=== PATIENT | male | born 1965 | race African-American/Black ===

== ENCOUNTER 2017-01-07 14:51 | Emergency (ER) | payer OTHER ==
[2017-01-07 15:01] VITALS: BP 151/99
--- NOTE | 2017-01-07 15:22 | ER Document Report ---
ED Medical Screen (RME) - General Stated Complaint: BLOOD PRESSURE PROBLEMS Notes: 51 yo male c/o elevated BP, shortness of breath, chest tightness since this morning while at work. seen at urgent care earlier today. EKG was normal. pt went home to rest, but symptoms persisted. + Hx/o HTN, no DM, nonsmoker. no previous cardiac hx. + fam cardiac hx. similar symptoms last year, dx with panic attack. pt feeling "normal" presently, pt tachy 127 TRAVEL OUTSIDE OF THE [place] IN LAST 30 DAYS: No - Related Data Allergies/Adverse Reactions: aspirin [Aspirin] Allergy (Severe, Verified 07/11/14 12:39) Anaphylaxis ibuprofen [From Motrin] Allergy (Severe, Verified 07/11/14 12:39) Anaphylaxis acetaminophen [From Vicodin] Allergy (Intermediate, Verified 07/11/14 12:39) Urticaria hydrocodone bitartrate [From Vicodin] Allergy (Intermediate, Verified 07/11/14 12:39) Urticaria oxycodone [Oxycodone] Allergy (Intermediate, Verified 07/11/14 12:39) Urticaria propoxyphene napsylate [From Darvocet-N 100] Allergy (Intermediate, Verified 12:39) Urticaria meloxicam [From Mobic] Allergy (Verified 07/11/14 12:39) oxycodone HCl [From Percocet] Allergy (Verified 07/11/14 12:39) tramadol [Tramadol] Allergy (Verified 07/11/14 12:39) Past Medical History - Past Medical History Cardiac Medical History: Reports: Hx Hypertension Pulmonary Medical History: Reports: Hx Tuberculosis - 1993 treated Psychiatric Medical History: Reports: Hx Anxiety Past Surgical History: Reports: Hx Abdominal Surgery - hernia repair, gastric bypass, Hx Testicular Surgery, Hx Tonsillectomy - Immunizations Hx Diphtheria, Pertussis, Tetanus Vaccination: No Physical Exam - Vital signs Vitals: Temp Pulse Resp BP Pulse Ox 98.8 F 127 H 16 151/99 H 99 01/07/17 14:59 01/07/17 14:59 01/07/17 14:59 01/07/17 14:59 01/07/17 14:59 Course - Vital Signs Vital signs: Temp Pulse Resp BP Pulse Ox 98.8 F 127 H 16 151/99 H 99 01/07/17 14:59 01/07/17 14:59 01/07/17 14:59 01/07/17 14:59 01/07/17 14:59
[2017-01-07 16:18] LABS: ABSOLUTE LYMPHOCYTES (AUTO) 1.9 10^3/uL (0.5-4.7); ABSOLUTE MONOCYTES (AUTO) 0.5 10^3/uL (0.1-1.4); BASOPHILS % (AUTO) 0.4 % (0-2); EOSINOPHILS % (AUTO) 0.5 % (0-6); HEMATOCRIT 40.8 % (37.9-51.0); HEMOGLOBIN 13.3 g/dL (13.5-17.0); HGB HCT DIFFERENCE -0.9; LYMPHOCYTES % (AUTO) 35.4 % (13-45); MEAN CORPUSCULAR HEMOGLOBIN 28.4 pg (27.0-33.4); MEAN CORPUSCULAR HGB CONC 32.6 g/dL (32.0-36.0); MEAN CORPUSCULAR VOLUME 87 fl (80-97); MONOCYTES % (AUTO) 9.3 % (3-13); RED BLOOD COUNT 4.69 10^6/uL (4.35-5.55); RED CELL DISTRIBUTION WIDTH 13.4 % (11.5-14.0); SEGMENTED NEUTROPHILS % (AUTO) 54.4 % (42-78); WHITE BLOOD COUNT 5.5 10^3/uL (4.0-10.5)
[2017-01-07 16:29] LABS: ALANINE AMINOTRANSFERASE 41 U/L (21-72); ALBUMIN 4.7 g/dL (3.5-5.0); ALKALINE PHOSPHATASE 90 U/L (38-126); ANION GAP 11 (5-19); ASPARTATE AMINO TRANSFERASE 40 U/L (17-59); BILIRUBIN,TOTAL 0.8 mg/dL (0.2-1.3); BLOOD UREA NITROGEN 15 mg/dL (7-20); CALCIUM 9.8 mg/dL (8.4-10.2); CARBON DIOXIDE 27 mmol/L (22-30); CHLORIDE 98 mmol/L (98-107); CREATINE KINASE 116 U/L (55-170); CREATININE RESULT 1.42 mg/dL (0.52-1.25); GLUCOSE 124 mg/dL (75-110); POTASSIUM 4.2 mmol/L (3.6-5.0); SODIUM 136.3 mmol/L (137-145); TOTAL PROTEIN 8.2 g/dL (6.3-8.2)
[2017-01-07 16:41] LABS: CREATINE KINASE MB 0.53 ng/mL (<4.55)
[2017-01-07 16:42] LABS: TROPONIN I < 0.012 ng/mL
--- NOTE | 2017-01-08 11:26 | EKG REPORT ---
SEVERITY:- BORDERLINE ECG - SINUS TACHYCARDIA BORDERLINE T WAVE ABNORMALITIES : Confirmed by: Lucero Steinberg 08-Jan-2017 11:25:14
== END 2017-01-07 18:30 | disposition left against medical advice (07) ==
LOC: ER 14:51
DX: Z53.9 Procedure and treatment not carried out, unspecified reason (principal); R03.0 Elevated blood-pressure reading, without diagnosis of hypertension; R06.02 Shortness of breath; R07.9 Chest pain, unspecified
CPT/HCPCS: 36415; 71020; 80053; 82550; 82553; 83690; 84484; 85025; 93005; 93010; 99281

== ENCOUNTER → 2017-06-03 | Outpatient (CLI) | payer OTHER ==
--- NOTE | 2017-06-03 09:27 | RADIOLOGY REPORT (SQ) ---
EXAM DESCRIPTION: MRI CERVICAL SPINE WITHOUT COMPLETED DATE/TIME: 06/03/2017 8:08 am REASON FOR STUDY: CERVICAL RADICULOPATHY (M54.12) M54.12 RADICULOPATHY, CERVICAL REGION COMPARISON: None. TECHNIQUE: Sagittal and Axial imaging includes T1, T2, STIR and gradient echo sequences. LIMITATIONS: None. FINDINGS: ALIGNMENT: Normal. VERTEBRAE: Intact. BONE MARROW: Normal. No marrow replacement or reactive changes. DISCS: Diffuse decreased T2 weighted intervertebral disc signal from C2-3 through C6-7. No significa nt disc space loss of height. HARDWARE: None in the spine. CORD AND BASE OF BRAIN: Normal in size and signal intensity. SOFT TISSUES: No soft tissue masses. C1-C2: Unremarkable C2-C3: No significant spinal stenosis or exit foraminal stenosis. C3-C4: No significant spinal stenosis or exit foraminal stenosis. C4-C5: No significant spinal stenosis or exit foraminal stenosis. C5-C6: Minimal diffuse posterior disc bulge and bony spurring is present without central stenosis. T here is moderate to high-grade right foraminal narrowing, mild left foraminal narrowing from facet an d uncovertebral hypertrophy. C6-C7: Mild diffuse posterior disc bulging is present, partly effacing the ventral thecal sac and abu tting the ventral cord without cord flattening or abnormal intrinsic cord signal. Borderline central canal narrowing. There is mild bilateral foraminal narrowing from facet and uncovertebral hypertrop hy. C7-T1: No central stenosis. Mild right and left foraminal narrowing from facet and uncovertebral hyp ertrophy. UPPER THORACIC: Incompletely imaged. No significant spinal stenosis or exit foraminal stenosis. OTHER: No other significant finding. IMPRESSION: Mild lower cervical degenerative disc changes as above. TECHNICAL DOCUMENTATION: JOB ID: [id number]- All Rights Reserved
== END ==
LOC: RAD 07:26
PROVIDERS: ATTEND Internal Medicine
DX: M54.12 Radiculopathy, cervical region (principal)
CPT/HCPCS: 72141

== ENCOUNTER 2018-09-19 10:49 | Emergency (ER) | payer OTHER ==
--- NOTE | 2018-09-19 11:40 | ER Document Report ---
ED Medical Screen (RME) - General TRAVEL OUTSIDE OF THE [place] IN LAST 30 DAYS: No - General Chief Complaint: Chest Pain Stated Complaint: CHEST TIGHTNESS Time Seen by Provider: 09/19/18 11:24 Notes: 53-year-old male with hypertension who presents to the emergency department today with complaints of chest tightness with associated shortness of breath, "irregular heartbeat", feeling disoriented, and diaphoresis. Patient states all of these symptoms began this morning upon awakening at 0630. Patient states the pain seemed to radiate up to his neck and he felt as if he was "choking" and during that time he had some difficulty with swallowing. Patient describes his pain as a squeezing sensation. Patient states the symptoms have seemed to ease off since arriving here. Patient states there was no change in his symptoms with exertion. Patient does note that he stopped smoking 2 days ago but denies any adverse effects from this. Patient denies any nausea, vomiting, recent long trips or recent surgeries. I have greeted and performed a rapid initial assessment of this patient. A comprehensive ED assessment and evaluation of the patient, analysis of test results, and completion of the medical decision making process will be conducted by additional ED providers. Review of systems: Constitutional: Feeling disoriented EENT: Difficulty swallowing Cardiovascular: Chest pain, "irregular heartbeat" Respiratory: Shortness of breath Gastrointestinal: No symptoms reported Genitourinary: Denies: Nausea or vomiting Musculoskeletal: No symptoms reported Skin: Diaphoresis Hematologic/Lymphatic: No symptoms reported Neurological/Psychological: No symptoms reported Yes All other systems reviewed and negative PHYSICAL EXAM GENERAL: Alert, interacts well. No acute distress. HEAD: Normocephalic, atraumatic. EYES: Pupils equal, round, and reactive to light. Extraocular movements intact. ENT: Oral mucosa moist, tongue midline. NECK: Full range of motion. Supple. Trachea midline. LUNGS: Clear to auscultation bilaterally, no wheezes, rales, or rhonchi. No respiratory distress. HEART: Mildly tachycardic, regular rhythm. No murmurs, gallops, or rubs. EXTREMITIES: Moves all 4 extremities spontaneously. NEUROLOGICAL: Alert and oriented x3. Normal speech. PSYCH: Normal affect, normal mood. SKIN: Warm, dry, normal turgor. No rashes or lesions noted. (ROBE YUN) - Related Data Allergies/Adverse Reactions: aspirin [Aspirin] Allergy (Severe, Verified 08/29/17 20:41) Anaphylaxis ibuprofen [From Motrin] Allergy (Severe, Verified 08/29/17 20:41) Anaphylaxis acetaminophen [From Vicodin] Allergy (Intermediate, Verified 08/29/17 20:41) Urticaria hydrocodone bitartrate [From Vicodin] Allergy (Intermediate, Verified 08/29/17 20:41) Urticaria oxycodone [Oxycodone] Allergy (Intermediate, Verified 08/29/17 20:41) Urticaria propoxyphene napsylate [From Darvocet-N 100] Allergy (Intermediate, Verified 02/09 20:41) Urticaria meloxicam [From Mobic] Allergy (Verified 08/29/17 20:41) oxycodone HCl [From Percocet] Allergy (Verified 08/29/17 20:41) tramadol [Tramadol] Allergy (Verified 08/29/17 20:41) Past Medical History - Past Medical History Cardiac Medical History: Reports: Hx Hypertension Denies: Hx Coronary Artery Disease, Hx Hypercholesterolemia Pulmonary Medical History: Reports: Hx Tuberculosis - 1993 treated Endocrine Medical History: Denies: Hx Diabetes Mellitus Type 2 Renal/ Medical History: Denies: Hx Peritoneal Dialysis Psychiatric Medical History: Reports: Hx Anxiety - With panic attacks Past Surgical History: Reports: Hx Abdominal Surgery, Hx Gastric Bypass Surgery - 2006, Hx Inguinal Hernia - Bilateral inguinal hernia repairs, Hx Testicular Surgery, Hx Tonsillectomy - Immunizations Hx Diphtheria, Pertussis, Tetanus Vaccination: No - Vital signs Vitals: Temp Pulse Resp BP Pulse Ox 98.3 F 110 H 18 154/99 H 98 09/19/18 10:53 09/19/18 10:53 09/19/18 10:53 09/19/18 10:53 09/19/18 10:53 - Vital Signs Vital signs: Temp Pulse Resp BP Pulse Ox 98.3 F 110 H 18 154/99 H 98 09/19/18 10:53 09/19/18 10:53 09/19/18 10:53 09/19/18 10:53 09/19/18 10:53 Scribe Documentation - Scribe Written by Marquise:: Marquise Alvarado, 09/19/2018 [id number] acting as scribe for :: Ivone
--- NOTE | 2018-09-19 12:04 | ER Document Report ---
ED Cardiac - General Chief Complaint: Chest Pain Stated Complaint: CHEST TIGHTNESS Time Seen by Provider: 09/19/18 11:24 TRAVEL OUTSIDE OF THE [place] IN LAST 30 DAYS: No - HPI Notes: Patient is a 53-year-old male that presents to the emergency department for chief complaint of chest tightness. Patient had acute onset of chest tightness at 630 this morning. He had associated palpitations and lightheadedness. He denied any diaphoresis nausea or vomiting. The tightness was diffuse across his chest and has been constant since onset. Currently he states the tightness is almost completely resolved. The palpitations and lightheadedness have since stopped. He denies history of cardiac disease in the past. He states he had a normal stress test many years ago. He has never had a heart catheterization. He states his mother had congestive heart failure when she was 50 but there is no family history of acute TN. Patient denies any relieving or aggravating factors to his pain. He states he has had similar pain in the past and was told it was a panic attack. Past Medical History: Hypertension Past Surgical History: Gastric bypass Social History: Denies drugs alcohol and tobacco use Family History: Reviewed and noncontributory for presenting illness Allergies: Reviewed, see documented allergy list. REVIEW OF SYSTEMS: CONSTITUTIONAL : No fever No chills No diaphoresis No recent illness EENT: No vision changes No congestion No sore throat CARDIOVASCULAR: chest pain palpitations RESPIRATORY: No shortness of breath No cough No difficulty breathing GASTROINTESTINAL: No abdominal pain No nausea No vomiting No diarrhea GENITOURINARY: No dysuria No hematuria No difficulty urinating MUSCULOSKELETAL: No back pain No leg pain No arm pain SKIN: No rashes No lesions LYMPHATIC: No swollen, enlarged glands. NEUROLOGICAL: lightheadedness No headache No weakness No paresthesias PSYCHIATRIC: No anxiety No depression PHYSICAL EXAMINATION: Vital signs reviewed, nursing noted reviewed. GENERAL: Well-appearing, well-nourished and in no acute distress. HEAD: Atraumatic, normocephalic. EYES: Eyes appear normal, extraocular movements intact, sclera anicteric, conjunctiva are normal. ENT: nares patent, oropharynx clear without exudates. Moist mucous membranes. NECK: Normal range of motion, supple without lymphadenopathy LUNGS: Breath sounds clear to auscultation bilaterally and equal. No wheezes rales or rhonchi. HEART: Regular rate and rhythm without murmurs ABDOMEN: Soft, nontender, normoactive bowel sounds. No rebound, guarding, or rigidity. No masses appreciated. EXTREMITIES: Nontender, good range of motion, no pitting or edema. NEUROLOGICAL: No focal neurological deficits. Moves all extremities spontaneously Motor and sensory grossly intact on exam. PSYCH: Normal mood, normal affect. SKIN: Warm, Dry, normal turgor, no rashes or lesions noted on exposed skin - Related Data Allergies/Adverse Reactions: aspirin [Aspirin] Allergy (Severe, Verified 08/29/17 20:41) Anaphylaxis ibuprofen [From Motrin] Allergy (Severe, Verified 08/29/17 20:41) Anaphylaxis acetaminophen [From Vicodin] Allergy (Intermediate, Verified 08/29/17 20:41) Urticaria hydrocodone bitartrate [From Vicodin] Allergy (Intermediate, Verified 08/29/17 20:41) Urticaria oxycodone [Oxycodone] Allergy (Intermediate, Verified 08/29/17 20:41) Urticaria propoxyphene napsylate [From Darvocet-N 100] Allergy (Intermediate, Verified 02/09 20:41) Urticaria meloxicam [From Mobic] Allergy (Verified 08/29/17 20:41) oxycodone HCl [From Percocet] Allergy (Verified 08/29/17 20:41) tramadol [Tramadol] Allergy (Verified 08/29/17 20:41) Past Medical History - Social History Smoking Status: Never Smoker Chew tobacco use (# tins/day): No Frequency of alcohol use: previous Drug Abuse: None Family History: CAD, Malignancy Patient has suicidal ideation: No Patient has homicidal ideation: No - Past Medical History Cardiac Medical History: Reports: Hx Hypertension Denies: Hx Coronary Artery Disease, Hx Hypercholesterolemia Pulmonary Medical History: Reports: Hx Tuberculosis - 1993 treated Endocrine Medical History: Denies: Hx Diabetes Mellitus Type 2 Renal/ Medical History: Denies: Hx Peritoneal Dialysis Psychiatric Medical History: Reports: Hx Anxiety - With panic attacks Past Surgical History: Reports: Hx Abdominal Surgery, Hx Gastric Bypass Surgery - 2006, Hx Inguinal Hernia - Bilateral inguinal hernia repairs, Hx Testicular Surgery, Hx Tonsillectomy - Immunizations Hx Diphtheria, Pertussis, Tetanus Vaccination: No Physical Exam - Vital signs Vitals: Temp Pulse Resp BP Pulse Ox 98.3 F 110 H 18 154/99 H 98 09/19/18 10:53 09/19/18 10:53 09/19/18 10:53 09/19/18 10:53 09/19/18 10:53 Course - Re-evaluation Re-evalutation: 09/19/18 12:02 Vitals reviewed. Nursing notes reviewed. Patient has an aspirin allergy therefore aspirin will be held. His EKG shows no acute ischemic changes. He is slightly tachycardic. 09/19/18 16:07 Patient's initial workup was unremarkable. His chest x-ray showed no pneumothorax or acute process. His heart score is 3 putting him in low risk category. Patient's repeat troponin is still negative. On reevaluation he is asymptomatic and hemodynamically stable. I did discuss compliance with his home blood pressure medication. He will follow closely with his primary care doctor in the next few days for reevaluation and for cardiac stress test. He will return to the emergency room if he develops any new or worsening symptoms. Patient is in agreement with this plan and stable at discharge. Laboratory 09/19/18 09/19/18 09/19/18 11:50 11:50 11:50 WBC 5.1 RBC 4.87 Hgb 14.0 Hct 41.8 MCV 86 MCH 28.7 MCHC 33.5 RDW 13.4 Plt Count 302 Seg Neutrophils % 45.3 Lymphocytes % 45.5 H Monocytes % 8.0 Eosinophils % 0.5 Basophils % 0.7 Absolute Neutrophils 2.3 Absolute Lymphocytes 2.3 Absolute Monocytes 0.4 Absolute Eosinophils 0.0 Absolute Basophils 0.0 D-Dimer Sodium 140.0 Potassium 4.1 Chloride 102 Carbon Dioxide 26 Anion Gap 12 BUN 15 Creatinine 1.17 Est GFR ( Amer) > 60 Est GFR (Non-Af Amer) > 60 Glucose 97 Calcium 9.5 Total Bilirubin 0.7 Direct Bilirubin 0.1 Neonat Total Bilirubin Not Reportable Neonat Direct Bilirubin Not Reportable Neonat Indirect Bili Not Reportable AST 55 ALT 75 H Alkaline Phosphatase 91 Troponin I < 0.012 Total Protein 7.5 Albumin 4.3 09/19/18 09/19/18 11:50 15:27 WBC RBC Hgb Hct MCV MCH MCHC RDW Plt Count Seg Neutrophils % Lymphocytes % Monocytes % Eosinophils % Basophils % Absolute Neutrophils Absolute Lymphocytes Absolute Monocytes Absolute Eosinophils Absolute Basophils D-Dimer < 0.27 Sodium Potassium Chloride Carbon Dioxide Anion Gap BUN Creatinine Est GFR ( Amer) Est GFR (Non-Af Amer) Glucose Calcium Total Bilirubin Direct Bilirubin Neonat Total Bilirubin Neonat Direct Bilirubin Neonat Indirect Bili AST ALT Alkaline Phosphatase Troponin I < 0.012 Total Protein Albumin Chest X-Ray 09/19/18 11:28 IMPRESSION: NO ACUTE RADIOGRAPHIC FINDING IN THE CHEST. - Vital Signs Vital signs: Temp Pulse Resp BP Pulse Ox 98.3 F 110 H 20 145/97 H 97 09/19/18 10:53 09/19/18 10:53 09/19/18 15:05 09/19/18 15:05 09/19/18 15:05 - Laboratory Result Diagrams: 09/19/18 11:50 09/19/18 11:50 Laboratory results interpreted by me: 09/19/18 09/19/18 11:50 11:50 Lymphocytes % 45.5 H ALT 75 H - EKG Interpretation by Me Additional EKG results interpreted by me: 09/19/18 12:03 Interpreted by myself 1055: Sinus tachycardia, rate 102, normal axis, no ectopy, no ST elevation, diffuse T wave flattening Discharge - Discharge Clinical Impression: Chest pain Qualifiers: Chest pain type: unspecified Qualified Code(s): R07.9 - Chest pain, unspecified Condition: Stable Disposition: HOME, SELF-CARE Instructions: Chest Pain of Unclear Cause ([facility]) Additional Instructions: Please return to the emergency department if you have any worsening, or concern of your symptoms. Please return to the emergency department if you develop chest pain, difficulty breathing, severe abdominal pain, or ongoing vomiting. Please follow-up with your primary care physician in 2-3 days and any other recommended physicians. If prescribed, take all medications as directed. If you have any questions or concerns do not hesitate to return the emergency department for evaluation. Follow-up with your primary care doctor's office in the next few days to obtain a cardiac stress test Referrals: [facility] [Provider Group] - Follow up tomorrow
[2018-09-19 12:19] LABS: ABSOLUTE LYMPHOCYTES (AUTO) 2.3 10^3/uL (0.5-4.7); ABSOLUTE MONOCYTES (AUTO) 0.4 10^3/uL (0.1-1.4); ABSOLUTE NEUT (AUTO) 2.3 10^3/uL (1.7-8.2); BASOPHILS % (AUTO) 0.7 % (0-2); EOSINOPHILS % (AUTO) 0.5 % (0-6); HEMATOCRIT 41.8 % (37.9-51.0); LYMPHOCYTES % (AUTO) 45.5 % (13-45); MEAN CORPUSCULAR HEMOGLOBIN 28.7 pg (27.0-33.4); MEAN CORPUSCULAR HGB CONC 33.5 g/dL (32.0-36.0); MEAN CORPUSCULAR VOLUME 86 fl (80-97); PLATELET COUNT 302 10^3/uL (150-450); RED BLOOD COUNT 4.87 10^6/uL (4.35-5.55); RED CELL DISTRIBUTION WIDTH 13.4 % (11.5-14.0); SEGMENTED NEUTROPHILS % (AUTO) 45.3 % (42-78); TOTAL CELLS COUNTED % (AUTO) 100 %; WHITE BLOOD COUNT 5.1 10^3/uL (4.0-10.5)
--- NOTE | 2018-09-19 12:23 | RADIOLOGY REPORT (SQ) ---
EXAM DESCRIPTION: CHEST SINGLE VIEW COMPLETED DATE/TIME: 09/19/2018 12:00 pm REASON FOR STUDY: chest pain, SOB COMPARISON: Chest films 06/03/2014, 07/11/2014, 01/07/2017, 09/08/2017 EXAM PARAMETERS: NUMBER OF VIEWS: One view. TECHNIQUE: Single frontal radiographic view of the chest acquired. RADIATION DOSE: NA LIMITATIONS: None. FINDINGS: LUNGS AND PLEURA: Old calcified granulomas in the left upper lobe. No acute infiltrates. No pleural effusion. No pneumothorax. MEDIASTINUM AND HILAR STRUCTURES: No masses. Contour normal. HEART AND VASCULAR STRUCTURES: Heart normal in size. Normal vasculature. BONES: No acute findings. HARDWARE: None in the chest. OTHER: No other significant finding. IMPRESSION: NO ACUTE RADIOGRAPHIC FINDING IN THE CHEST. TECHNICAL DOCUMENTATION: JOB ID: [id number] [employer]- All Rights Reserved Reading location - IP/workstation name: [email or web address]
[2018-09-19 12:38] LABS: ALANINE AMINOTRANSFERASE 75 U/L (21-72); ALBUMIN 4.3 g/dL (3.5-5.0); ALKALINE PHOSPHATASE 91 U/L (38-126); ANION GAP 12 (5-19); ASPARTATE AMINO TRANSFERASE 55 U/L (17-59); BILIRUBIN,DIRECT 0.1 mg/dL (0.0-0.4); BILIRUBIN,TOTAL 0.7 mg/dL (0.2-1.3); BLOOD UREA NITROGEN 15 mg/dL (7-20); CALCIUM 9.5 mg/dL (8.4-10.2); CARBON DIOXIDE 26 mmol/L (22-30); CHLORIDE 102 mmol/L (98-107); GLUCOSE 97 mg/dL (75-110); POTASSIUM 4.1 mmol/L (3.6-5.0); TOTAL PROTEIN 7.5 g/dL (6.3-8.2)
--- NOTE | 2018-09-19 14:00 | EKG REPORT ---
SEVERITY:- BORDERLINE ECG - SINUS TACHYCARDIA BORDERLINE T ABNORMALITIES, DIFFUSE LEADS : Confirmed by: Marguerite Beaulieu MD 19-Sep-2018 14:00:03
[2018-09-19 15:19] VITALS: BP 145/97
== END 2018-09-19 16:18 | disposition home or self-care (01) ==
LOC: ER 10:49
DX: R07.9 Chest pain, unspecified (principal); R00.2 Palpitations; I10 Essential (primary) hypertension; R42 Dizziness and giddiness; R06.02 Shortness of breath; Z82.49 Family history of ischemic heart disease and other diseases of the circulatory system; Z86.11 Personal history of tuberculosis; Z98.84 Bariatric surgery status
CPT/HCPCS: 36415; 71045; 80053; 84484; 85025; 85379; 93005; 93010; 99285

== ENCOUNTER → 2018-12-18 | Outpatient (CLI) | payer OTHER ==
--- NOTE | 2018-12-18 12:08 | RADIOLOGY REPORT (SQ) ---
EXAM DESCRIPTION: CT ABD/PELVIS NO ORAL OR IV COMPLETED DATE/TIME: 12/18/2018 8:28 am REASON FOR STUDY: MALIGNANT NEOPLASM OF PROSTATE C61 MALIGNANT NEOPLASM OF PROSTATE COMPARISON: None. TECHNIQUE: CT scan of the abdomen and pelvis performed without intravenous or oral contrast. Images reviewed with lung, soft tissue, and bone windows. Reconstructed coronal and sagittal MPR images revi ewed. All images stored on PACS. All CT scanners at this facility use dose modulation, iterative reconstruction, and/or weight based d osing when appropriate to reduce radiation dose to as low as reasonably achievable (ALARA). [facility]: Dose Right [facility]: CareDose [facility]: Dose Right [facility]: Teradose 4D [facility]: Smart [employer] RADIATION DOSE: CT Rad equipment meets quality standard of care and radiation dose reduction techniq ues were employed. CTDIvol: 18.1 mGy. DLP: 1071 mGy-cm.mGy. LIMITATIONS: None. FINDINGS: LOWER CHEST: No significant findings. No nodules or infiltrates. NON-CONTRASTED LIVER, SPLEEN, ADRENALS: Evaluation limited by lack of IV contrast. No identified sign ificant masses. PANCREAS: No masses. No peripancreatic inflammatory changes. GALLBLADDER: No identified stones by CT criteria. No inflammatory changes to suggest cholecystitis. RIGHT KIDNEY AND URETER: No suspicious masses. Assessment limited by lack of IV contrast. No signif icant calcifications. No hydronephrosis or hydroureter. LEFT KIDNEY AND URETER: No suspicious masses. Assessment limited by lack of IV contrast. No signifi cant calcifications. No hydronephrosis or hydroureter. AORTA AND RETROPERITONEUM: No aneurysm. No retroperitoneal masses or adenopathy. BOWEL AND PERITONEAL CAVITY: Gastric bypass. No obvious masses or inflammatory changes. No free flui d. APPENDIX: Normal. PELVIS, BLADDER, AND ABDOMINAL WALL:Prior anterior lower abdominopelvic hernia repair. No abnormal m asses. No free fluid. Bladder normal. BONES: No significant findings. OTHER: No other significant finding. IMPRESSION: NO ACUTE PROCESS IN THE ABDOMEN OR PELVIS. COMMENT: Quality ID # [id number]: Final reports with documentation of one or more dose reduction techniques (e.g., Automated exposure control, adjustment of the mA and/or kV according to patient size, use of iterative reconstruction technique) TECHNICAL DOCUMENTATION: JOB ID: [id number]- All Rights Reserved Reading location - IP/workstation name: [email or web address]
== END ==
LOC: RAD 08:06
PROVIDERS: ATTEND Physician Assistant Medical
DX: C61 Malignant neoplasm of prostate (principal)
CPT/HCPCS: 74176